=== PATIENT | female | born 1940 | race Caucasian/White ===

== ENCOUNTER 2022-11-03 13:14 | Emergency (ER) | payer MEDICARE, OTHER ==
[~2022-11-03] VITALS: Ht 157.5 cm; Wt 75.7 kg
[2022-11-03] MEDS ORDERED: CLON0.252 PO (13:53)
[2022-11-03] MEDS ORDERED: ONDA4TAB5 PO (13:53)
[2022-11-03] MEDS ORDERED: NIFE30TA2 PO (13:53)
[2022-11-03] MEDS ORDERED: CARV6.252 PO (13:53)
[2022-11-03] MEDS ORDERED: FAMO-132 PO (13:53)
[2022-11-03] MEDS ORDERED: EMPA25TA PO (13:53)
[2022-11-03] MEDS ORDERED: APIX5TAB4 PO (13:53)
[2022-11-03] MEDS ORDERED: DEXL60CA3 PO (13:53)
[2022-11-03] MEDS ORDERED: VITAMIN D PO (13:53)
[2022-11-03] MEDS ORDERED: ALBU8HFA4 (13:53)
[2022-11-03] MEDS ORDERED: DULA1.5P SQ (13:53)
[2022-11-03] MEDS ORDERED: DICY20TA11 PO (13:53)
[2022-11-03] MEDS ORDERED: INSU200I4 SQ (13:53)
[2022-11-03] MEDS ORDERED: ROSU40TA PO (13:53)
[2022-11-03] MEDS ORDERED: METF-440 PO (13:53)
--- NOTE | 2022-11-03 13:54 | NUR ---
Distal PMS intact in right extremities.
[2022-11-03] MEDS ORDERED: ACETAMINOPHEN 325 MG TABLET PO ONE (14:00)
[2022-11-03] MEDS ORDERED: ACETAMINOPHEN 325 MG TABLET ONE (14:17)
--- NOTE | 2022-11-03 14:24 | NUR ---
Pt had c/o 10/10 pain, administered with applesauce.
[2022-11-03] MEDS ORDERED: ONDANSETRON 4 MG/2 ML VIAL IV ONE (15:00)
[2022-11-03] MEDS ORDERED: HYDROMORPHONE 1 MG/1 ML DISP.SYRIN IV ONE ×2 (15:00→18:30)
[2022-11-03] MEDS ORDERED: ONDANSETRON ODT 4 MG TAB.RAPDIS ONE (15:02)
[2022-11-03] MEDS ORDERED: ONDANSETRON ODT 4 MG TAB.RAPDIS SL ONE (15:15)
[2022-11-03 15:31] LABS: HEMATOCRIT 42.1 % (31.2-41.9); MEAN CORPUSCULAR HEMOGLOBIN 28.2 uug (24.7-32.8); PLATELET COUNT (AUTO) 169 K/uL (179-408)
[2022-11-03 15:43] LABS: CREATININE 1.1 mg/dL (0.6-1.3); POTASSIUM 4.2 mmol/L (3.5-5.1)
[2022-11-03 15:59] LABS: BILIRUBIN,TOTAL 0.4 mg/dL (0.2-1.0); TOTAL PROTEIN, SERUM 7.6 g/dL (6.4-8.2)
[2022-11-03] MEDS ORDERED: IV NS 1000 ML 1,000 ML IV PRN (16:00)
[2022-11-03] MEDS ORDERED: REMEDY ESSENTIAL ZINC PASTE 113 GM TP PRN (16:00)
[2022-11-03] MEDS ORDERED: HYDROMORPHONE 1 MG/1 ML DISP.SYRIN IV PRN (16:00)
[2022-11-03] MEDS ORDERED: ONDANSETRON 4 MG/2 ML VIAL IV PRN (16:00)
[2022-11-03] MEDS ORDERED: MAGNESIUM HYDROXIDE 30 ML LIQUID UDC PO PRN (16:00)
[2022-11-03] MEDS ORDERED: PANTOPRAZOLE SODIUM 40 MG VIAL IV SCH (16:00)
[2022-11-03] MEDS ORDERED: ACETAMINOPHEN 325 MG TABLET PO PRN (16:00)
[2022-11-03] MEDS ORDERED: ENOXAPARIN SODIUM 40 MG/0.4 ML DISP.SYRIN SQ SCH (16:00)
[2022-11-03] MEDS ORDERED: ONDANSETRON 4 MG/2 ML VIAL ONE (16:17)
[2022-11-03] MEDS ORDERED: HYDROMORPHONE 1 MG/1 ML DISP.SYRIN ONE (16:18)
--- NOTE | 2022-11-03 17:40 | NUR ---
Pt and [id number] signed out against medical advice and are awaiting private ambulance pick-up; ETA around [phone].
[2022-11-03 18:40] LABS: *BILIRUBIN,URIN NEGATIVE (NEGATIVE); *BLOOD, URINE NEGATIVE (NEGATIVE); *CLARITY,URINE CLEAR (CLEAR); *COLOR,URINE YELLOW (YELLOW); *KETONES,URINE NEGATIVE (NEGATIVE); *UROBILINOGEN,URINE 0.2 E.U./dl (NORMAL); LEUKOCYTE ESTERASE ,URINE NEGATIVE (NEGATIVE); NITRITE, URINE NEGATIVE (NEGATIVE); PH,URINE 5.5 (5.0-8.0); UGLUCOSE NEGATIVE (NEGATIVE)
--- NOTE | 2022-11-03 19:26 | NUR ---
Patient car pick up driver by private ambulance [facility] per family. Patient signes AMA form and ambulance to transpot patient to [facility]
[2022-11-03 20:17] VITALS: BP 150/75
== END 2022-11-03 19:26 | disposition left against medical advice (07) ==
LOC: ER 13:14
DX: S72.001A Fracture of unspecified part of neck of right femur, initial encounter for closed fracture (principal); W18.09XA Striking against other object with subsequent fall, initial encounter; Y92.89 Other specified places as the place of occurrence of the external cause; E11.22 Type 2 diabetes mellitus with diabetic chronic kidney disease; N18.9 Chronic kidney disease, unspecified; J44.9 Chronic obstructive pulmonary disease, unspecified; Z79.84 Long term (current) use of oral hypoglycemic drugs; Z79.899 Other long term (current) drug therapy; Z95.0 Presence of cardiac pacemaker; Z98.61 Coronary angioplasty status; Z53.29 Procedure and treatment not carried out because of patient's decision for other reasons
CPT/HCPCS: 99285; 96374; 72192; 71045; 96361; 96375; 80053; 81003; 83880; 85025; 85610; 84484; 36415; 93005; 73502; J2405; J1170; A4663; Q0162